=== PATIENT | female | born 1965 | race Asian ===

== ENCOUNTER 2021-12-17 19:30 | Emergency (ER) | payer OTHER, SELFPAY ==
[~2021-12-17] VITALS: Ht 157.5 cm; Wt 57.6 kg
[2021-12-17 19:57] VITALS: BP_SYST 145
[2021-12-17] MEDS ORDERED: GUAI-723 PO (20:12)
[2021-12-17] MEDS ORDERED: PRED20TA PO (20:12)
[2021-12-17 20:30] VITALS: BP_SYST 145
== END 2021-12-17 20:30 | disposition home or self-care (01) ==
LOC: SED 19:30
DX: U07.1 COVID-19 (principal); J02.8 Acute pharyngitis due to other specified organisms
CPT/HCPCS: 99283

== ENCOUNTER 2021-12-22 11:08 | Emergency (ER) | payer OTHER, SELFPAY ==
[~2021-12-22] VITALS: Ht 157.5 cm; Wt 57.6 kg
[~2021-12-22 11:08] MED LIST: GUAI-723 PO; PRED20TA PO
[2021-12-22 11:20] VITALS: BP_SYST 146
[2021-12-22 12:09] LABS: BASOPHILS % (AUTO) 0.6 % (0.0-2.0); EOSINOPHILS # (AUTO) 0.1 K/uL (0.0-0.4); EOSINOPHILS % (AUTO) 1.3 % (0.0-4.0); HEMATOCRIT 41.1 % (36-48); HEMOGLOBIN 13.6 g/dL (12.0-16.0); LYMPHOCYTES # (AUTO) 2.8 K/uL (1.0-5.5); MEAN CORPUSCULAR HEMOGLOBIN 28 pg (27-31); MEAN CORPUSCULAR HGB CONC 33 % (32-36); MEAN CORPUSCULAR VOLUME 86 fL (79.0-98.0); MONOCYTES # (AUTO) 0.4 K/uL (0.0-1.0); MONOCYTES % (AUTO) 7.5 % (1.7-9.3); NEUTROPHILS # (AUTO) 2.3 K/uL (1.8-7.7); NEUTROPHILS % (AUTO) 40.6 % (40.0-70.0); PLATELET COUNT (AUTO) 154 K/uL (130-430); RED BLOOD CELL COUNT(AUTO) 4.79 MIL/uL (4.2-6.2); RED CELL DISTRIBUTION WIDTH 12.8 % (9.0-15.0); WHITE BLOOD COUNT (AUTO) 5.6 K/uL (4.8-10.8)
[2021-12-22 12:32] LABS: ANION GAP 9 (5-15); CALCIUM 8.7 mg/dL (8.4-11.0); CHLORIDE 104 mmol/L (98-107); CREATININE 0.47 mg/dL (0.55-1.30); GLUCOSE 92 mg/dL (70-99); POTASSIUM 3.4 mmol/L (3.5-5.1); SODIUM SERUM 143 mmol/L (136-145); UREA NITROGEN, BLOOD 12 mg/dL (8-21)
[2021-12-22 12:34] LABS: GFR AFRICAN AMERICAN 178 mL/min (>90)
[2021-12-22 12:50] LABS: ALANINE AMINOTRANSFERASE 55 U/L (12-78); ALBUMIN 3.9 g/dL (3.4-4.8); ASPARTATE AMINOTRANSFERASE 24 U/L (10-37); TOTAL BILIRUBIN 0.5 mg/dL (0.0-1.0)
[2021-12-22 12:53] LABS: C-REACTIVE PROTEIN QUANT < 0.2 mg/dL (0-0.5)
[2021-12-22] MEDS ORDERED: PSEU30TA36 PO (13:11)
[2021-12-22] MEDS ORDERED: IBUP-1969 PO (13:11)
[2021-12-22 16:31] VITALS: BP_SYST 115
== END 2021-12-22 16:31 | disposition home or self-care (01) ==
LOC: SED 11:08
DX: J02.8 Acute pharyngitis due to other specified organisms (principal)
CPT/HCPCS: 36415; 71045; 80053; 83605; 85025; 86140; 86308-TC; 86403; 87081; 99284